=== PATIENT | male | born 1990 | race Two or more races ===

== ENCOUNTER 2016-07-16 11:13 | Observation (INO) | payer MEDICAID, OTHER ==
[~2016-07-16] VITALS: Ht 177.8 cm; Wt 86.2 kg
[2016-07-16] MEDS ORDERED: SODIUM CHLORIDE 0.9% 1,000 ML IVB ONE (11:44)
[2016-07-16] MEDS ORDERED: ONDANSETRON HCL 4 MG/2 ML VIAL IV ONE (11:45)
[2016-07-16 11:57] LABS: Basophils # (auto) 0 uL; Basophils % (auto) 0.4 % (0.0-2.0); Eosinophils # (auto) 0.2 uL; Eosinophils % (auto) 2.7 % (0.0-7.0); Hematocrit 43.1 % (41.0-53.0); Hemoglobin 14.6 g/dL (13.5-17.5); Lymphocytes # (auto) 1.9 uL; Lymphocytes % (auto) 25.2 % (10.0-50.0); Mean Corpuscular Hemoglobin 30.1 pg (28.0-32.0); Mean Corpuscular Volume 88.6 fL (80.0-100.0); Mean Platelet Volume 10.2 fL (7.4-10.4); Monocytes # (auto) 0.4 uL; Monocytes % (auto) 4.9 % (0.0-12.0); Neutrophils # (auto) 5.2 uL; Neutrophils % (auto) 66.8 % (37.0-80.0); Platelet Count (auto) 244 10^3/uL (140-450); Red Cell Distribution Width 13.4 % (11.6-16.0); White Blood Cell 7.7 10^3/uL (4.4-10.8)
[2016-07-16 12:18] LABS: Albumin 4.1 g/dL (3.4-5.0); BUN/Creatinine Ratio 7.4; Bilirubin, Total 0.4 mg/dL (0.2-1.0); Magnesium 2.3 mg/dL (1.6-2.6); Potassium 4.2 mmol/L (3.5-5.1); Total Protein 7.5 g/dL (6.4-8.2)
[2016-07-16 12:20] LABS: INR 1.02 (0.9-1.15); Partial Thromboplastin Time 29.9 sec (22.64-33.71); Prothrombin Time 11.1 sec (9.37-12.3)
[2016-07-16 12:30] VITALS: BP 152/104
[2016-07-16 13:07] LABS: Urine RBC None Seen /hpf (0 - 3)
[2016-07-16 13:21] LABS: Urine Bilirubin Negative (Negative); Urine Blood Negative /uL (Negative); Urine Color Yellow (Yellow); Urine Glucose Normal (Normal); Urine Ketone Negative (Negative); Urine Nitrite Negative (Negative); Urine Urobilinogen Normal (Negative)
== END 2016-07-16 14:32 | disposition home or self-care (01) | DRG 249 ==
LOC: ER 11:13 → OVERFLOW 11:45 → ER 14:32
PROVIDERS: ADMIT Family Medicine; ATTEND Family Medicine
DX: K52.9 Noninfective gastroenteritis and colitis, unspecified (principal); R16.2 Hepatomegaly with splenomegaly, not elsewhere classified; R10.9 Unspecified abdominal pain; F17.210 Nicotine dependence, cigarettes, uncomplicated; R11.2 Nausea with vomiting, unspecified; R19.7 Diarrhea, unspecified
CPT/HCPCS: 36415; 71010; 74176; 80053; 81001; 82150; 83690; 83735; 85025; 85610; 85730; 96361; 96374; 99285; G0378; J2405; J7030

== ENCOUNTER 2019-04-29 19:05 | Emergency (ER) | payer MEDICAID, OTHER ==
[~2019-04-29] VITALS: Ht 177.8 cm; Wt 90.7 kg
[2019-04-29 19:56] VITALS: BP 138/73
[2019-04-29] MEDS ORDERED: METHOCARBAMOL 500 MG TAB PO ONE (21:30)
[2019-04-29] MEDS ORDERED: IBUPROFEN 800 MG TAB PO ONE (21:30)
== END 2019-04-29 21:57 | disposition home or self-care (01) ==
LOC: ER 19:05
DX: R51 Headache (principal); M54.2 Cervicalgia; M62.838 Other muscle spasm; F17.210 Nicotine dependence, cigarettes, uncomplicated; F12.10 Cannabis abuse, uncomplicated; V43.52XA Car driver injured in collision with other type car in traffic accident, initial encounter; Y93.89 Activity, other specified; Y99.8 Other external cause status; Y92.410 Unspecified street and highway as the place of occurrence of the external cause
CPT/HCPCS: 70450; 71045; 72125; 73100